=== PATIENT | male | born 1995 ===

== ENCOUNTER 2017-07-16 00:38 | Emergency (ER) | payer MEDICAID ==
[2017-07-16 00:52] VITALS: BP 160/69; PULSE 111; RESP 18; TEMP 98.3; O2SAT 96
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
[2017-07-16] MEDS ORDERED: Lidocaine 1% Inj (20ml) IJ ONE (05:11)
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
--- NOTE | 2017-07-16 11:56 | RAD ---
PROCEDURE: Right thumb dated 07/16/2017 HISTORY: post-reduction x-ray COMPARISON: Comparison made with prior radiographs of the right thumb and right hand obtained earlier same day TECHNIQUE: Two views right thumb performed. FINDINGS: RIGHT THUMB: Previously noted dorsally dislocated distal phalanx with respect to the proximal phalanx has been reduced. There is a small somewhat triangular shaped bony density within palmar soft tissues adjacent to the distal aspect proximal phalanx right thumb which could represent a tiny avulsion fracture however the possibility of a small accessory ossicle/sesamoid bone not excluded. Mild surrounding soft tissue swelling JOINTS: As above. SOFT TISSUES: As above. No radiopaque foreign bodies OTHER FINDINGS: None. IMPRESSION: Status post reduction previously noted dorsally dislocated distal phalanx with respect to the proximal phalanx right thumb. Questionable small avulsion fracture versus is small accessory ossicle/sesamoid bone not excluded Note this report was placed in PA review folder for followup.
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
== END 2017-07-16 06:06 | disposition home or self-care (01) ==
LOC: H.ER 00:38
DX: S09.90XA Unspecified injury of head, initial encounter (principal); S63.101A Unspecified subluxation of right thumb, initial encounter; Y04.0XXA Assault by unarmed brawl or fight, initial encounter; Y92.89 Other specified places as the place of occurrence of the external cause